=== PATIENT | female | born 1940 | race Caucasian/White ===

== ENCOUNTER 2016-08-22 12:00 | Emergency (ER) | payer MEDICARE, OTHER ==
[~2016-08-22] VITALS: Ht 162.6 cm; Wt 130.0 kg
[~2016-08-22 12:00] MED LIST: 1-ME1LIQ PO; FURO1TAB93 PO; LEVO.05 PO; METO100T PO; MOTI25CH PO; OMEP20TA39 PO; POTA-243 PO; PRIN20TA2 PO; XANA0.5T PO
[2016-08-22 12:02] VITALS: BP 161/74; PULSE 80; RESP 14; TEMP 98.1; O2SAT 97
--- NOTE | 2016-08-22 12:43 | PD ---
HPI Chief Complaint: Pain: Acute or Chronic Time Seen by Provider: 12:43 Travel History International Travel<30 days: No Contact w/Intl Traveler<30days: No Traveled to known affect area: No History of Present Illness HPI 76-year-old female with history of hypertension, hyperthyroidism, peripheral neuropathy presents to emergency department for evaluation of severe bilateral lower extremity pain. Patient states that she takes hydrocodone for her knees and gabapentin for her neuropathy but has not taken either of these today. She states she woke up this morning and her lower extremities were "on fire." She is followed by Dr. Aguirre. States her lower extremities have been swollen and edematous for the last year. They vary in size and redness. She reports in recent illnesses, fever, or chills. States that she is very unsteady on her lower extremities and falls frequently which is why her knees cause her pain and why she is on medication for this. She states that her primary care provider is aware of this. She then goes in and tells me of a situation a month ago where she attempted to pull herself into her trunk but feels that she pulled her abdominal muscles and has been sore since that incident. She denies a nausea vomiting. No urinary symptoms. No chest pain or tightness. No other symptoms at this time. PFSH Past Medical History Hepatitis: Yes (C) Hypertension: Yes Thyroid Disease: Yes ?: Not Menopausal: Yes Past Surgical History Section: Yes (X2) Social History Alcohol Use: Yes (4 GLASSES WINE PER DAY) Tobacco Use: No Substance Use: No Allergies-Medications (Allergen,Severity, Reaction): Coded Allergies: Penicillin (Verified Allergy, Mild, 08/22/16) Reported Meds & Prescriptions Reported Meds & Active Scripts Active Lasix (Furosemide) 20 Mg Tab 20 Mg PO DAILY 7 Days Reported Betamethasone Dipropionate Topical 0.05% Cream 1 Applic TOPICAL DAILY Vitamin D (Cholecalciferol) 5,000 Unit Tab Metoprolol Succinate ER 24 HR (Metoprolol Succinate) 100 Mg Tab 100 Mg PO DAILY Furosemide 40 Mg Tab 40 Mg PO DAILY Lisinopril 20 Mg Tab 20 Mg PO DAILY Omeprazole 20 Mg Tab 20 Mg PO DAILY Potassium Chloride ER (Potassium Chloride) 10 Meq Cap 10 Meq PO DAILY Amlodipine (Amlodipine Besylate) 10 Mg Tab 10 Mg PO DAILY Alprazolam 0.5 Mg Tab 0.5 Mg PO Q8H PRN Levothyroxine (Levothyroxine Sodium) 50 Mcg Tab 50 Mcg PO DAILY Hydrocodone-Acetaminophen 10-325 mg Tab 1 Tab PO Q4H PRN Gabapentin 300 Mg Cap 300 Mg PO BID Review of Systems Except as stated in HPI: all other systems reviewed are Neg Physical Exam Narrative GENERAL: Obese female patient, sitting in a chair, in no acute distress SKIN: Warm and dry. Bilateral lower extremity erythema distal to the knee. This area is warm to touch. HEAD: Atraumatic. Normocephalic. EYES: Pupils equal and round. No scleral icterus. No injection or drainage. ENT: No nasal bleeding or discharge. Mucous membranes pink and moist. NECK: Trachea midline. No JVD. CARDIOVASCULAR: Regular rate and rhythm. No murmur appreciated. RESPIRATORY: No accessory muscle use. Diminished, due to girth and poor inspiratory effort.. Breath sounds equal bilaterally. GASTROINTESTINAL: Abdomen soft, non-tender, nondistended. Hepatic and splenic margins not palpable. MUSCULOSKELETAL: No obvious deformities. No clubbing. No cyanosis. 2+ bilateral lower extremity edema. NEUROLOGICAL: Awake and alert. No obvious cranial nerve deficits. Motor grossly within normal limits. Normal speech. Data Data Last Documented VS Vital Signs Date Time Temp Pulse Resp B/P Pulse Ox O2 Delivery O2 Flow Rate FiO2 08/22/16 13:53 77 18 164/73 96 Nasal Cannula 2 08/22/16 12:02 98.1 Orders Complete Blood Count With Diff (08/22/16 12:40) Basic Metabolic Panel (Bmp) (08/22/16 12:40) Ua Includes Microscopic (08/22/16 12:40) Labs Laboratory Tests Test 08/22/16 08/22/16 12:54 13:02 White Blood Count 9.9 TH/MM3 Red Blood Count 3.98 MIL/MM3 Hemoglobin 9.1 GM/DL Hematocrit 29.2 % Mean Corpuscular Volume 73.3 FL Mean Corpuscular Hemoglobin 22.9 PG Mean Corpuscular Hemoglobin 31.3 % Concent Red Cell Distribution Width 17.7 % Platelet Count 227 TH/MM3 Mean Platelet Volume 7.5 FL Neutrophils (%) (Auto) 81.3 % Lymphocytes (%) (Auto) 8.0 % Monocytes (%) (Auto) 10.1 % Eosinophils (%) (Auto) 0.2 % Basophils (%) (Auto) 0.4 % Neutrophils # (Auto) 8.0 TH/MM3 Lymphocytes # (Auto) 0.8 TH/MM3 Monocytes # (Auto) 1.0 TH/MM3 Eosinophils # (Auto) 0.0 TH/MM3 Basophils # (Auto) 0.0 TH/MM3 CBC Comment AUTO DIFF Differential Comment AUTO DIFF CONFIRMED Sodium Level 131 MEQ/L Potassium Level 4.0 MEQ/L Chloride Level 97 MEQ/L Carbon Dioxide Level 28.0 MEQ/L Anion Gap 6 MEQ/L Blood Urea Nitrogen 10 MG/DL Creatinine 0.53 MG/DL Estimat Glomerular Filtration 112 ML/MIN Rate Random Glucose 122 MG/DL Calcium Level 8.6 MG/DL Urine Color YELLOW Urine Turbidity CLEAR Urine pH 5.0 Urine Specific [place] 1.013 Urine Protein NEG mg/dL Urine Glucose (UA) NEG mg/dL Urine Ketones NEG mg/dL Urine Occult Blood TRACE Urine Nitrite NEG Urine Bilirubin NEG Urine Urobilinogen LESS THAN 2.0 MG/DL Urine Leukocyte Esterase NEG Urine RBC LESS THAN 1 /hpf Urine WBC LESS THAN 1 /hpf Urine Bacteria RARE /hpf Urine Mucus FEW /lpf MDM Medical Decision Making Medical Screen Exam Complete: Yes Emergency Medical Condition: Yes Medical Record Reviewed: Yes Differential Diagnosis Peripheral neuropathy versus medication noncompliance versus the left foot abnormality versus cellulitis versus osteoarthritis Narrative Course 76-year-old female presents to the emergency department for evaluation. Patient appears without distress. She does have edema and erythema of the distal bilateral lower extremities. Otherwise she is without distress. Vital signs are stable. I'll do basic lab work to ensure there is no active infection going on. Patient has taken her gabapentin and hydrocodone here in triage. Workup was initiated once a medical bed becomes available, patient will be transferred and care assumed by Dr. ontiveros. Scripts Furosemide (Lasix)20 Mg Tab20 Mg PO DAILY 7 Days Ref 0 Prov:Maria D Weeks MD 08/22/16 Condition: Stable Elissa Peck Aug 22, 2016 12:43
[2016-08-22 13:39] LABS: BASOPHIL % 0.4 % (0.0-2.0); EOSINOPHIL % 0.2 % (0.0-4.0); HEMATOCRIT 29.2 % (35.0-46.0); LYMPHOCYTE # 0.8 TH/MM3 (1.0-4.8); MEAN CELL VOLUME 73.3 FL (80.0-100.0); MEAN CORPUSCULAR HEMOGLOBIN 22.9 PG (27.0-34.0); MEAN CORPUSCULAR HGB CONC 31.3 % (32.0-36.0); MONO % 10.1 % (0.0-8.0); NEUT % 81.3 % (16.0-70.0); PLATELET COUNT 227 TH/MM3 (150-450); RED BLOOD COUNT 3.98 MIL/MM3 (4.00-5.30); RED CELL DISTRIBUTION WIDTH 17.7 % (11.6-17.2); WHITE BLOOD COUNT 9.9 TH/MM3 (4.0-11.0)
[2016-08-22 13:42] LABS: HEMO FLAGS AUTO DIFF
[2016-08-22 13:51] LABS: BACTERIA, URINE RARE /hpf; BLOOD, URINE TRACE (NEG); GLUCOSE,URINE NEG (NEG); KETONE, URINE NEG (NEG); MUCUS URINE FEW /lpf (OCC); NITRITE,URINE NEG (NEG); URINE COLOR YELLOW (YELLW/STRAW)
[2016-08-22 13:53] VITALS: BP 164/73; PULSE 77; RESP 18; O2SAT 96
[2016-08-22] MEDS ORDERED: METO100T9 PO (14:21)
[2016-08-22] MEDS ORDERED: LISI-515 PO (14:21)
[2016-08-22] MEDS ORDERED: OMEP20TA PO (14:21)
[2016-08-22] MEDS ORDERED: GABA300C5 PO (14:21)
[2016-08-22] MEDS ORDERED: CHOL50006 (14:21)
[2016-08-22] MEDS ORDERED: AMLO10TA2 PO (14:21)
[2016-08-22] MEDS ORDERED: LEVO50TA4 PO (14:21)
[2016-08-22] MEDS ORDERED: FURO40TA PO (14:21)
[2016-08-22] MEDS ORDERED: POTA10CA PO (14:21)
[2016-08-22] MEDS ORDERED: ALPR0.5T3 PO (14:21)
[2016-08-22] MEDS ORDERED: HYDR-3583 PO (14:21)
[2016-08-22] MEDS ORDERED: BETA0.052 TOPICAL (14:21)
[2016-08-22 14:22] LABS: SCAN/DIFF AUTO DIFF CONFIRMED
--- NOTE | 2016-08-22 14:28 | PD ---
Data Data Last Documented VS Vital Signs Date Time Temp Pulse Resp B/P Pulse Ox O2 Delivery O2 Flow Rate FiO2 08/22/16 13:53 77 18 164/73 96 Nasal Cannula 2 08/22/16 12:02 98.1 Orders Complete Blood Count With Diff (08/22/16 12:40) Basic Metabolic Panel (Bmp) (08/22/16 12:40) Ua Includes Microscopic (08/22/16 12:40) Labs Laboratory Tests Test 08/22/16 08/22/16 12:54 13:02 White Blood Count 9.9 TH/MM3 Red Blood Count 3.98 MIL/MM3 Hemoglobin 9.1 GM/DL Hematocrit 29.2 % Mean Corpuscular Volume 73.3 FL Mean Corpuscular Hemoglobin 22.9 PG Mean Corpuscular Hemoglobin 31.3 % Concent Red Cell Distribution Width 17.7 % Platelet Count 227 TH/MM3 Mean Platelet Volume 7.5 FL Neutrophils (%) (Auto) 81.3 % Lymphocytes (%) (Auto) 8.0 % Monocytes (%) (Auto) 10.1 % Eosinophils (%) (Auto) 0.2 % Basophils (%) (Auto) 0.4 % Neutrophils # (Auto) 8.0 TH/MM3 Lymphocytes # (Auto) 0.8 TH/MM3 Monocytes # (Auto) 1.0 TH/MM3 Eosinophils # (Auto) 0.0 TH/MM3 Basophils # (Auto) 0.0 TH/MM3 CBC Comment AUTO DIFF Differential Comment AUTO DIFF CONFIRMED Sodium Level 131 MEQ/L Potassium Level 4.0 MEQ/L Chloride Level 97 MEQ/L Carbon Dioxide Level 28.0 MEQ/L Anion Gap 6 MEQ/L Blood Urea Nitrogen 10 MG/DL Creatinine 0.53 MG/DL Estimat Glomerular Filtration 112 ML/MIN Rate Random Glucose 122 MG/DL Calcium Level 8.6 MG/DL Urine Color YELLOW Urine Turbidity CLEAR Urine pH 5.0 Urine Specific [place] 1.013 Urine Protein NEG mg/dL Urine Glucose (UA) NEG mg/dL Urine Ketones NEG mg/dL Urine Occult Blood TRACE Urine Nitrite NEG Urine Bilirubin NEG Urine Urobilinogen LESS THAN 2.0 MG/DL Urine Leukocyte Esterase NEG Urine RBC LESS THAN 1 /hpf Urine WBC LESS THAN 1 /hpf Urine Bacteria RARE /hpf Urine Mucus FEW /lpf MDM Supervised Visit with OPHELIA: Yes Narrative Course I, Dr. Weeks, have reviewed the advance practice practioner's documentation and am in agreement, met with the patient face to face, made the diagnosis, and the medical decision making was done by me. *My assessment and Findings: 76-year-old female with history of HTN, peripheral neuropathy but no diabetes, chronic low back pain and knee pain here with a burning sensation her bilateral lower extremities radiating up into the thighs. Patient is seen by PCP and takes gabapentin and Lortab. She took these in our waiting room and states that she now feels improved. Her symptoms are chronic in nature. She has a chronic lower extremity edema for which she takes Lasix, has been compliant with this. Patient is a poor historian, but from what I can gather none of these symptoms are acutely new or worsened. Patient has chronic venous stasis changes of the bilateral lower extremities with very mild erythema around the ankles. There are no open wounds. She has normal strength, baseline ambulates with walker. Decreased stocking -like peripheral sensation. My strong suspicion is that patient's symptoms are due to chronic neuropathy, no doubt made worse by her peripheral edema. Junk with early cellulitis. Unlikely DVT given the chronic nature, bilaterally. Patient' s laboratory workup notes anemia, likely chronic in nature. Patient will be discharged home with Keflex for early cellulitis. We will increase her Lasix from 40-60 mg daily. Patient was encouraged to follow-up with her PCP, and get appropriately fitted for compression stockings. Condition: Stable Maria D Weeks MD Aug 22, 2016 14:28
--- NOTE | 2016-08-22 14:29 | PD ---
Physical Exam Time Seen by Provider: 14:24 Narrative Patient seen by provider in triage who initiated workup. I assumed care of the patient when she was moved to B pod. Please see her documentation for full history of present illness. Data Data Last Documented VS Vital Signs Date Time Temp Pulse Resp B/P Pulse Ox O2 Delivery O2 Flow Rate FiO2 08/22/16 13:53 77 18 164/73 96 Nasal Cannula 2 08/22/16 12:02 98.1 Orders Complete Blood Count With Diff (08/22/16 12:40) Basic Metabolic Panel (Bmp) (08/22/16 12:40) Ua Includes Microscopic (08/22/16 12:40) Labs Laboratory Tests Test 08/22/16 08/22/16 12:54 13:02 White Blood Count 9.9 TH/MM3 Red Blood Count 3.98 MIL/MM3 Hemoglobin 9.1 GM/DL Hematocrit 29.2 % Mean Corpuscular Volume 73.3 FL Mean Corpuscular Hemoglobin 22.9 PG Mean Corpuscular Hemoglobin 31.3 % Concent Red Cell Distribution Width 17.7 % Platelet Count 227 TH/MM3 Mean Platelet Volume 7.5 FL Neutrophils (%) (Auto) 81.3 % Lymphocytes (%) (Auto) 8.0 % Monocytes (%) (Auto) 10.1 % Eosinophils (%) (Auto) 0.2 % Basophils (%) (Auto) 0.4 % Neutrophils # (Auto) 8.0 TH/MM3 Lymphocytes # (Auto) 0.8 TH/MM3 Monocytes # (Auto) 1.0 TH/MM3 Eosinophils # (Auto) 0.0 TH/MM3 Basophils # (Auto) 0.0 TH/MM3 CBC Comment AUTO DIFF Differential Comment AUTO DIFF CONFIRMED Sodium Level 131 MEQ/L Potassium Level 4.0 MEQ/L Chloride Level 97 MEQ/L Carbon Dioxide Level 28.0 MEQ/L Anion Gap 6 MEQ/L Blood Urea Nitrogen 10 MG/DL Creatinine 0.53 MG/DL Estimat Glomerular Filtration 112 ML/MIN Rate Random Glucose 122 MG/DL Calcium Level 8.6 MG/DL Urine Color YELLOW Urine Turbidity CLEAR Urine pH 5.0 Urine Specific [place] 1.013 Urine Protein NEG mg/dL Urine Glucose (UA) NEG mg/dL Urine Ketones NEG mg/dL Urine Occult Blood TRACE Urine Nitrite NEG Urine Bilirubin NEG Urine Urobilinogen LESS THAN 2.0 MG/DL Urine Leukocyte Esterase NEG Urine RBC LESS THAN 1 /hpf Urine WBC LESS THAN 1 /hpf Urine Bacteria RARE /hpf Urine Mucus FEW /lpf MDM Supervised Visit with OPHELIA: No Differential Diagnosis Dependent edema versus cellulitis versus venous stasis versus dermatitis versus chronic neuropathy versus radiculopathy versus sciatica Narrative Course 76-year-old female presents to the emergency department for evaluation of burning pain in her bilateral upper thighs that began this morning when she woke up. Patient is afebrile, vital signs are stable. On physical examination she has bilateral lower extremity edema with some erythema and warmth around the ankles. She has had lower extremity edema for about 8 months and has been following up with her PCP Dr. Aguirre regarding this swelling. She is on Lasix 40 mg daily for this edema. The burning in her anterior thighs she has also had before, she has a history of degenerative disc disease with chronic low back pain and neuropathy. She took her Lortab and gabapentin while in the waiting room here in our emergency department and states that this did help her pain, her pain is now improved. She is not having any focal neurologic deficits. No bowel or bladder incontinence. The patient's neuropathy and lower extremity edema is chronic. CBC is unremarkable for any acute abnormalities. BMP shows mild hyponatremia with a sodium of 131. She admits to drinking beer throughout the day which likely contributes to her swelling and her hyponatremia. There is a little bit of redness and warmth to her lower legs that we'll treat with Keflex for potential infection. Discussed fluid restriction with the patient. Instructed her to keep her legs elevated. Instructed to follow-up with her PCP to get fitted for compression stockings. We will increase her Lasix dose to 60 mg daily for the next week. I discussed the case with my attending physician Dr. Weeks who is aware of the patients history, physical examination findings, and treatment plan. Diagnosis Primary Impression: Bilateral lower extremity edema Additional Impression: Neuropathy Referrals: Primary Care Physician 1 week Patient Instructions: General Instructions, Leg Edema (ED), Peripheral Neuropathy (ED) Additional Instruction: Elevate legs. Follow-up with your PCP and get fitted for compression stockings. Increase your Lasix dose to 60 mg daily for the next week. Take antibiotics as prescribed. Follow-up with your Primary Care Physician within the next week. Return to the ED for any acute worsening of symptoms. Med/Other Pt SpecificInfo: Prescription(s) given Disposition: 01 DISCHARGE HOME Condition: Stable Renae Franco Aug 22, 2016 14:29
[2016-08-22] MEDS ORDERED: FURO1TAB62 PO (14:34)
== END 2016-08-22 14:57 | disposition home or self-care (01) ==
LOC: NEPB 12:00
DX: R60.0 Localized edema (principal); G62.9 Polyneuropathy, unspecified; L03.116 Cellulitis of left lower limb; L03.115 Cellulitis of right lower limb; I10 Essential (primary) hypertension; E05.90 Thyrotoxicosis, unspecified without thyrotoxic crisis or storm; Z79.899 Other long term (current) drug therapy; Z86.19 Personal history of other infectious and parasitic diseases; Z87.39 Personal history of other diseases of the musculoskeletal system and connective tissue
CPT/HCPCS: 80048; 81001; 85025